=== PATIENT | male | born 1980 | race Caucasian/White ===

== ENCOUNTER 2022-01-28 17:37 | Emergency (ER) | payer SELFPAY ==
[2022-01-28 17:50] VITALS: BP 141/86; PULSE 72; RESP 16; TEMP 36.7; O2SAT 96
--- NOTE | 2022-01-28 17:51 | ED.SKABFB ---
HPI - Skin/Abscess/Foreign Bdy General Chief complaint: Skin/Abscess/Foreign Body Stated complaint: Rash All Over Body Time Seen by Provider: 01/28/22 17:51 Source: patient and RN notes reviewed Mode of arrival: ambulatory Limitations: no limitations History of Present Illness HPI narrative: 41-year-old male presents to the [facility] with complaints of a red indurated area that started 2 weeks ago to the right axilla. Had been using a fungal cream. States it started spreading to his left axilla and groin area. Describes it as being very itchy Related Data Allergies Allergy/AdvReac Type Severity Reaction Status Date / Time latex Allergy Intermediate Rash Verified 01/28/22 17:58 Review of Systems Review of Systems: All systems reviewed & are unremarkable except as noted in HPI and below Constitutional: Constitutional: Reports no additional constitutional complaints, Denies chills and Denies fever(s) Eyes: Eyes: Reports no additional eye complaints ENT: Reports system reviewed and no additional complaints, except as documented Cardiovascular: Cardiovascular: Reports no additional cardiovascular complaints Respiratory: Respiratory: Reports no additional respiratory complaints Gastrointestinal: Gastrointestinal: Reports no additional gastrointestinal complaints Musculoskeletal: Musculoskeletal: Reports no additional musculoskeletal complaints Integumentary/Breasts: Skin/Breast: Reports as per HPI, Reports erythema and Reports rash Neurologic: Reports system reviewed and no additional complaints, except as documented Psychiatric: Psychiatric: Reports no additional psychiatric complaints Allergic/Immunologic: Allergic/Immunologic: Reports no additional allergic/immunologic complaints PMFSH Comments At the time of my signature, I reviewed and agree with the nursing past medical, surgical, social, and family history. There is no relevant family history pertinent to the patient complaint. Exam Const: General: healthy appearing, no acute distress and alert Nutritional Appearance: well nourished Orientation/consciousness: patient oriented x3 Limitations: no limitations HENMT: Head: normal to inspection Ears: external ears normal Eyes: General: appearance normal, both eyes and all related structures Pupils: Equal, round and reactive pupils present Neck: Neck: normal visual inspection, no lymphadenopathy and no meningeal signs Chest: Chest palpation & inspection: normal inspection of the chest Resp: Effort & Inspection: normal respiratory effort and no use of accessory muscles Auscultation: clear to auscultation bilaterally, no crackles, no rales, no rhonchi and no wheezes Cardio: Rate: regular rate Rhythm: regular rhythm Back/Spine/Pelvis: Cervical Spine: normal cervical lordosis Thoracic/Lumbar Spine: thoracic and lumbar spine normal to inspection Skin: General skin exam: normal color Wounds: no wounds Other: Red indurated area measuring 4 x 3 cm right axilla. Groin, pink irritated indurated area. Neuro: General: patient oriented x3, moves all extremities, no meningeal signs and no focal motor deficits Cranial nerves: Yes Equal, round and reactive pupils present Speech: normal speech Gait exam (Neuro): Normal gait present Extrem: General: normal to inspection, full ROM and capillary refill normal Psych: Appearance: grossly normal and well kempt Mental Status: mental status grossly normal Affect: normal affect Attitude: cooperative Thought content: Yes Normal thought content present Course Course Emergency Course: Discharge instructions reviewed with patient, as well as provided in writing per nursing staff. The instructions also include specific and strict return/GO TO THE ER as well as f/u information. All questions have been answered, and the patient deny any further questions with discharge and discharge plan. Some parts of this dictation were generated by voice recognition software and may
== END 2022-01-28 18:20 | disposition home or self-care (01) ==
PROVIDERS: Emergency Provider Nurse Practitioner
DX: L03.111 Cellulitis of right axilla (principal); R21 Rash and other nonspecific skin eruption
CPT/HCPCS: 99203; G0463

== ENCOUNTER 2022-02-26 17:51 | Emergency (ER) | payer SELFPAY ==
[2022-02-26 17:55] VITALS: BP 120/69; PULSE 52; RESP 16; TEMP 36.6; O2SAT 98
--- NOTE | 2022-02-26 18:28 | ED.SKABFB ---
HPI - Skin/Abscess/Foreign Bdy General Chief complaint: Skin/Abscess/Foreign Body Stated complaint: Rash on Body Time Seen by Provider: 02/26/22 18:00 Source: patient Mode of arrival: ambulatory Limitations: no limitations History of Present Illness HPI narrative: Mr. Krishnamurthy is a 41-year-old male patient presenting to the clinic today with complaints of rash in his axilla and behind his right ear. He reports he was seen a couple weeks ago for the same rash and was given some antifungals and some prednisone at that time and that improved his rash. He reports now it seems as though as the rash has come back with a vengeance Related Data Allergies Allergy/AdvReac Type Severity Reaction Status Date / Time latex Allergy Intermediate Rash Verified 02/26/22 18:06 Review of Systems Review of Systems: Pertinent positives per HPI. Patient denies any fever, chills, headache, visual changes, dizziness, cough, runny nose, sore throat, shortness of breath, chest pain, palpitations, nausea, vomiting, diarrhea, constipation, abdominal pain, or any urinary issues. PMFSH Comments At the time of my signature, I reviewed and agree with the nursing past medical, surgical, social, and family history. There is no relevant family history pertinent to the patient complaint. Exam Narrative: General: Well-developed, well nourished, in no apparent distress Head: Normocephalic, atraumatic. Cardio: Regular rate and rhythm, s1 and s2 normal, no murmur appreciated. Resp: Clear to auscultation bilaterally, no rhonchi, rales, wheezing or rubs. Integumentary: [place], warm, and dry, intact without lesion, red, beefy, itchy/burning rash to the posterior auricle and in the bilateral axillas Course Course Emergency Course: Portions of this record may have been created with voice recognition software. Level of Care: Express Care Visit Vital Signs Vital signs: Vital Signs Temperature 36.6 C 02/26/22 17:55 Pulse Rate 52 L 02/26/22 17:55 Respiratory Rate 16 02/26/22 17:55 Blood Pressure 120/69 02/26/22 17:55 Pulse Oximetry 98 02/26/22 17:55 Oxygen Delivery Room Air 02/26/22 17:55 Temperature 36.6 C 02/26/22 17:55 Pulse Rate 52 L 02/26/22 17:55 Respiratory Rate 16 02/26/22 17:55 Blood Pressure 120/69 02/26/22 17:55 Pulse Oximetry 98 02/26/22 17:55 Oxygen Delivery Room Air 02/26/22 17:55 Vital signs reviewed MDM - Skin/Abscess/Foreign Bdy MDM Narrative Medical decision making narrative: At the time of visit patient is resting comfortably on the exam table. I suspect that he has fungal Love of the skin. Supportive measures were discussed with the patient he voiced understanding of discharge instructions I will give him a prescription for some oral Diflucan as well as some clotrimazole cream. Differential Diagnosis Differential diagnosis: Likely abscess of skin or subcutaneous tissue, dermatophytosis, urticaria, cellulitis, eczema, insect bites, impetigo, contact dermatitis and other (Fungal infection) Discharge Plan Discharge Clinical Impression: Candidal skin infection Patient Disposition: Home, Self-Care Condition: Stable Instructions: Antibiotic Form, Skin Yeast Infection (ED) Additional Instructions: Take Diflucan as prescribed May apply cool clotrimazole cream to the affected areas twice daily for 14 days May take Tylenol/Motrin as needed for any pain Follow-up with your PCP in 1 week if symptoms persist or sooner if they worsen Prescriptions: New fluconazole [Diflucan] 150 mg tablet 150 mg PO WEEKLY 14 Days Qty: 2 0RF Rx Instructions: every 72 hours as needed for vaginal yeast infection. clotrimazole 1 % cream 1 applic topical BID 14 Days Qty: 45 0RF Follow-up/Referrals: PHYSICIAN,ELEMENTARY ELL TEACHER [Primary Care Provider] - Time of Disposition: 18:30 Quality NIHSS Nursing Documentation ED NIHSS nursing documentation: reviewed/agree
== END 2022-02-26 18:36 | disposition home or self-care (01) ==
PROVIDERS: Emergency Provider Nurse Practitioner Family
DX: B37.2 Candidiasis of skin and nail (principal)
CPT/HCPCS: 99213; G0463